=== PATIENT | female | born 1950 | race Hispanic/Latino ===

== ENCOUNTER → 2024-09-28 | Outpatient (CLI) | payer OTHER, MEDICARE ==
[~2024-09-28] MED LIST: GADOTERATE MEGLUMINE 10 MMOL/20 ML VIAL IV ONE
--- NOTE | 2024-09-28 11:37 | HMCIMG ---
MRCP(ABDWWO)CHOLANGIOPANCREATO HISTORY: Abnormal findings on diagnostic imaging of liver and biliary tract COMPARISON: None TECHNIQUE: MRI of the abdomen was performed utilizing multiple pulse sequences in axial, coronal and sagittal planes. Patient was called cc of Clariscan through intravenous route. MRCP was obtained. FINDINGS: No pleural effusion is seen bilaterally. Liver measures 16 cm. Common duct is dilated measuring 18 mm. Spleen, adrenal glands and pancreas are unremarkable. Both kidneys are seen without hydronephrosis. No MR evidence of common duct stone is seen. No ascites is seen. IMPRESSION: 1. Dilated common duct measuring 18 mm. No MR evidence of common duct stone is seen. Gallbladder is not seen.
== END | disposition home or self-care (01) ==
LOC: RAH 08:30
PROVIDERS: ATTEND Internal Medicine Gastroenterology
DX: K83.8 Other specified diseases of biliary tract (principal); R93.2 Abnormal findings on diagnostic imaging of liver and biliary tract
CPT/HCPCS: 74183; A9575